=== PATIENT | male | born 1990 | race Caucasian/White ===

== ENCOUNTER 2020-10-08 01:22 | Observation (INO) | payer OTHER, SELFPAY ==
[2020-10-08] VITALS (11 sets, daily range): BP systolic 110–160; BP diastolic 73–107; PULSE 43–83; RESP 14–19; TEMP 36.3–37.1; O2SAT 97–99; BMI 36.3
--- NOTE | 2020-10-08 | ECHO_ITS ---
Patient Info Name: Bry Rosas Age: 30 years : 1990 Gender: Male Ht: 71 in Wt: 260 lbs BSA: 2.47 m2 HR: 59 bpm BP: 118 / 80 mmHg Technical Quality: Good Exam Date: 10/08/2020 1:16 PM Exam Location: [facility] Patient Status: Outpatient Admit Date: 10/08/2020 Staff Ordering Physician: Nancy Rice MD Cvor Nurse: Sergio Lopez RDCS, RT Attending Provider: Doris Ruff MD Referring Physician: Dwayne VILLAGOMEZ; Exam Type: CA echo doppler color flow Study Info Indications I47.2 - Ventricular tachycardia Complete two-dimensional, color flow and Doppler transthoracic echocardiogram is performed. Strain analysis performed. Summary 1. Complete two-dimensional, color flow and Doppler transthoracic echocardiogram is performed. 2. Left ventricular chamber dimension is normal. 3. Left ventricular systolic function is normal, estimated at 60-65%. 4. There is moderately increased left ventricular wall thickness. 5. The left ventricular diastolic function is grade I diastolic dysfunction. 6. E/e' 8 is minimally elevated. 7. Global longitudinal strain is normal at -17.3%. 8. There is trace mitral valve regurgitation. 9. There is trace pulmonic regurgitation. Left Ventricle Global longitudinal strain is normal at -17.3%. E/e' 8 is minimally elevated. Left ventricular chamber dimension is normal. Left ventricular systolic function is normal, estimated at 60-65%. There is moderately increased left ventricular wall thickness. The left ventricular diastolic function is grade I diastolic dysfunction. Right Ventricle Right ventricular systolic function is normal and with normal TAPSE 2.4 cm. Right ventricular chamber dimension is normal. Left Atria Left atrial chamber dimension is normal. Right Atria Right atrial chamber dimension is normal. Aortic Valve The aortic valve is trileaflet. There is no aortic valve stenosis. There is no aortic valve regurgitation. Pulmonic Valve There is trace pulmonic regurgitation. Mitral Valve There is no mitral valve stenosis. There is trace mitral valve regurgitation. Tricuspid Valve There is no tricuspid valve regurgitation. Pericardium/Pleural There is no pericardial effusion. Inferior Vena Cava Normal inferior vena cava with >50% collapse upon inspiration consistent with normal right atrial pressure, 5 mmHg. Aorta The aortic root size at the sinus of Valsalva is normal. Left Ventricular Outflow Tract Name Value Normal LVOT 2D LVOT Diameter 2.0 cm LVOT Doppler LVOT Peak Gradient 3 mmHg LVOT Mean Gradient 2 mmHg LVOT VTI 19 cm LVOT VTI/AV VTI Ratio 0.7 LVOT Stroke Volume 62 ml LVOT CO 3.7 l/min LVOT CI 1.6 l/min/m2 Mitral Valve Name Value Normal
--- NOTE | ~2020-10-08 | XR_ITS ---
XR chest 1V portable DATE: 10/08/2020 08:23 INDICATION: Tachycardia. Atrial fibrillation. TECHNIQUE: Portable upright AP chest on 10/08 at 0806 hours COMPARISON: 02/04/2015 AP and lateral chest FINDINGS: Normal heart size. No hilar or mediastinal enlargement. No pulmonary infiltrate or consolid ation or pleural effusion or pulmonary vascular congestion or pneumothorax. Included skeletal structu res are unremarkable. IMPRESSION: No active cardiopulmonary disease Reviewed, dictated and finalized at location A.
--- NOTE | 2020-10-08 01:27 | PC.NURSE ---
This patient, Bry Rosas, was admitted to IMU Room 210-01 at 0027 . Patient/family oriented to hospital policies and general routines including ID bracelet, bed and alarms, visiting hours, pain management, procedures, bathroom and other care routines, personal items, smoking policy, room service/diet, and visiting hours. Information on how to activate the Rapid Response Team has been discussed. Patient/Family are encouraged to report perceived risks to care and to ask questions if they do not understand what they are told or what they should do.
--- NOTE | 2020-10-08 03:57 | ECG_ITS ---
Measurements Intervals [place] Rate: 46 P: 20 ND: 176 QRS: 16 QRSD: 102 T: 19 QT: 446 QTc: 392 Interpretive Statements SINUS BRADYCARDIA BASELINE WANDER- I, III, AVR, AVL, AVF ABNORMAL ECG Electronically Signed On 10-08-2020 6:29:36 CDT by Donovan Sutherland D.O.
[2020-10-08 04:55] LABS: Basophils Percent Auto 0.6 % (0.2-1.2); Eosinophils Absolute Auto 0.2 K/mm3 (0-0.3); Eosinophils Percent Auto 2.3 % (0-4.4); Hematocrit 41.9 % (42.0-52.0); Hemoglobin 14.1 g/dL (14.0-18.0); Immature Granulocyte Absolute 0.04 K/mm3 (0.00-0.031); Immature Granulocyte Percent A 0.6 % (0-0.5); Lymphocytes Absolute Auto 3.53 K/mm3 (0.9-3.2); Lymphocytes Percent Auto 50.4 % (18.3-44.2); Mean Corpuscular HGB Conc 33.7 g/dl (32-36); Mean Corpuscular Hemoglobin 30.8 pg (26-34); Mean Corpuscular Volume 91.5 fl (80-100); Mean Platelet Volume 9.2 fl (7.4-10.4); Monocytes Absolute Auto 0.6 K/mm3 (0.1-0.6); Monocytes Percent Auto 8.7 % (2.6-8.5); Neutrophils Absolute Auto 2.6 K/mm3 (1.3-6.7); Neutrophils Percent Auto 37.4 % (45.5-73.1); Platelet Count Result 256 k/mm3 (150-375); Red Blood Count 4.58 M/mm3 (4.6-6.20); Red Cell Distribution Width 12.3 % (11.5-14.5)
[2020-10-08 05:03] LABS: Partial Thromboplastin Time 34.5 SECONDS (22.3-36.8)
[2020-10-08] MEDS: ENOXAPARIN 120 MG/0.8 ML SYRINGE SUB-Q (07:04)
[2020-10-08 07:19] LABS: Estimated CRCL calculation 154 ml/min; Estimated Glomerular Filt Rate > 60
[2020-10-08 08:56] LABS: Anion Gap 10 mmol/L (8-16); Blood Urea Nitrogen 9 mg/dL (9-20); Calcium 9.1 mg/dL (8.4-10.2); Carbon Dioxide 20 mmol/L (22-30); Chloride 107 mmol/L (98-107); Estimated CRCL calculation 154 ml/min; Estimated Glomerular Filt Rate > 60; Glucose 94 mg/dL (75-110); Sodium 137 mmol/L (137-145)
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
[2020-10-08 12:43] LABS: Basophils Percent Auto 0.7 % (0.2-1.2); Eosinophils Absolute Auto 0.1 K/mm3 (0-0.3); Eosinophils Percent Auto 2.3 % (0-4.4); Hematocrit 42.6 % (42.0-52.0); Hemoglobin 14.6 g/dL (14.0-18.0); Immature Granulocyte Absolute 0.03 K/mm3 (0.00-0.031); Immature Granulocyte Percent A 0.5 % (0-0.5); Lymphocytes Absolute Auto 2.41 K/mm3 (0.9-3.2); Lymphocytes Percent Auto 41.8 % (18.3-44.2); Mean Corpuscular HGB Conc 34.3 g/dl (32-36); Mean Corpuscular Hemoglobin 31.1 pg (26-34); Mean Corpuscular Volume 90.8 fl (80-100); Mean Platelet Volume 9.4 fl (7.4-10.4); Monocytes Absolute Auto 0.4 K/mm3 (0.1-0.6); Monocytes Percent Auto 7.3 % (2.6-8.5); Neutrophils Absolute Auto 2.7 K/mm3 (1.3-6.7); Neutrophils Percent Auto 47.4 % (45.5-73.1); Platelet Count Result 239 k/mm3 (150-375); Red Blood Count 4.69 M/mm3 (4.6-6.20); Red Cell Distribution Width 12.6 % (11.5-14.5); White Blood Count 5.8 K/mm3 (4.5-10.0)
[2020-10-08 12:55] LABS: Alanine Aminotransferase 100 U/L (4-50); Albumin Level 4.3 g/dL (3.5-5.1); Alkaline Phosphatase 80 U/L (38-126); Anion Gap 8 mmol/L (8-16); Aspartate Amino Transferase 65 U/L (17-59); Bilirubin,Total 0.7 mg/dL (0.2-1.3); Blood Urea Nitrogen 9 mg/dL (9-20); Calcium 9.2 mg/dL (8.4-10.2); Carbon Dioxide 24 mmol/L (22-30); Chloride 106 mmol/L (98-107); Estimated CRCL calculation 154 ml/min; Estimated Glomerular Filt Rate > 60; Glucose 138 mg/dL (75-110); Potassium 3.6 mmol/L (3.4-5.0); Sodium 138 mmol/L (137-145)
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
== END 2020-10-08 16:10 | disposition home or self-care (01) ==
PROVIDERS: Admitting Provider Internal Medicine; Visit Provider Internal Medicine
DX: R00.2 Palpitations (principal); R00.1 Bradycardia, unspecified; I48.91 Unspecified atrial fibrillation; I10 Essential (primary) hypertension; R06.02 Shortness of breath; R07.9 Chest pain, unspecified; E87.2 Acidosis; E66.9 Obesity, unspecified; Z68.36 Body mass index [BMI] 36.0-36.9, adult; F17.210 Nicotine dependence, cigarettes, uncomplicated
CPT/HCPCS: 36415; 71045; 80048; 80053; 82565; 85025; 85730; 93005; 93306; 96372; G0378; G0379; J1650

== ENCOUNTER 2021-07-21 20:38 | Emergency (ER) | payer OTHER, SELFPAY ==
--- NOTE | ~2021-07-21 | CT_ITS ---
EXAMINATION: CT abdomen pelvis wo con DATE: 07/21/2021 21:42 INDICATION: Left upper quadrant pain and swelling TECHNIQUE: Computed tomography (CT) of the abdomen and pelvis was performed without intravenous contr ast. The dose-length product (DLP) was 1628.23 mGy-cm. Automated exposure control and iterative recon struction technique were employed. COMPARISON: None FINDINGS: The lung bases are clear. The heart size is normal. The liver, spleen, pancreas, gallbladde r, and adrenal glands are normal. The kidneys are unremarkable. There is mild periportal lymphadenopa thy. There is no free intraperitoneal gas or evidence of bowel obstruction. A moderate volume of colo yelena stool is present. The appendix is normal. IMPRESSION: 1. Moderate volume of colonic stool. 2. Mild periportal lymphadenopathy, likely reactive. Reviewed, dictated and finalized at location F.
[2021-07-21 20:40] VITALS: BP 135/88; PULSE 85; RESP 20; TEMP 36.3; O2SAT 100
--- NOTE | 2021-07-21 20:57 | ED.ABDPAIN ---
HPI - Abdominal Pain General Chief Complaint: Abdominal Pain Stated Complaint: abd pain Time Seen by Provider: 07/21/21 20:55 Source: patient Mode of arrival: ambulatory Limitations: no limitations History of Present Illness HPI narrative: Patient is a 31-year-old male complaining of left lower and left mid quadrant pain, 3 out of 10, sharp, nonradiating, accompanied by constipation started 3 to 4 days ago. Patient denies any chest pain, shortness of breath, nausea, vomiting, urinary symptoms, fever or chills. Related Data Home Medications Medication Instructions Recorded Confirmed buprenorphine-naloxone [Suboxone] 1 film BUCCAL DAILY PRN 10/08/20 10/08/20 Allergies Allergy/AdvReac Type Severity Reaction Status Date / Time acetaminophen AdvReac Rash Verified 07/21/21 20:42 [From Tylenol-Codeine #3] codeine AdvReac Rash Verified 07/21/21 20:42 [From Tylenol-Codeine #3] Review of Systems Review of Systems: All systems reviewed & are unremarkable except as noted in HPI and below Constitutional: Constitutional: Denies body ache(s), Denies chills, Denies excessive sweating, Denies fatigue, Denies fever(s), Denies headache(s), Denies lethargy, Denies malaise, Denies weakness and Denies weight loss Eyes: Eyes: Denies blurry vision, Denies change in vision and Denies loss of vision ENT: Denies dizziness, Denies ear discharge, Denies headache(s), Denies lip swelling, Denies epistaxis, Denies nasal congestion, Denies neck pain, Denies throat swelling and Denies tongue swelling Cardiovascular: Cardiovascular: Denies chest pain, Denies chest pain at rest, Denies chest pain with activity, Denies diaphoresis, Denies rapid heart rate, Denies edema, Denies irregular heart rhythm, Denies lightheadedness, Denies palpitations, Denies dyspnea and Denies dyspnea on exertion Respiratory: Respiratory: Denies chest congestion, Denies cough, Denies hemoptysis, Denies dyspnea and Denies dyspnea on exertion Gastrointestinal: Gastrointestinal: Denies melena, Denies hematochezia, Denies diarrhea, Denies nausea, Denies vomiting and Denies hematemesis Musculoskeletal: Musculoskeletal: Denies abnormal gait, Denies deformity, Denies joint swelling, Denies limited range of motion, Denies neck pain and Denies numbness Neurologic: Denies Abnormal speech present, Denies abnormal gait, Denies confusion, Denies dizziness, Denies headache(s), Denies focal weakness, Denies loss of vision, Denies numbness, Denies Other visual disturbances, Denies Sensory deficit (Neuro) and Denies weakness Psychiatric: Psychiatric: Denies confusion, Denies depression, Denies auditory hallucinations, Denies homicidal ideation and Denies suicidal ideation Endocrine: Endocrine: Denies cold intolerance, Denies excessive sweating, Denies fatigue, Denies heat intolerance and Denies palpitations Hematologic/Lymphatic: Hematologic/Lymphatic: Denies easy bleeding and Denies easy bruising Allergic/Immunologic: Allergic/Immunologic: Denies lip swelling, Denies throat swelling and Denies tongue swelling PMFSH Past Medical History Medical History Abnormal heart rhythm Drug abuse, opioid type Has been clean since 2015 Family History Family History Father Acute myocardial infarction Mother Acute myocardial infarction Social History Social History Years smoked: 20 Smoking status: Current every day smoker Tobacco type: cigarettes Alcohol intake: former Substance use: former Substance use type: heroin Gender identity (if verbalized by the patient): Male Spiritual care concerns: No Exam Const: General: cooperative, healthy appearing, comfortable, no acute distress, well developed, alert and awake; No confusion Orientation/consciousness: oriented to person, oriented to place, oriented to time, patient oriented x3 and No confusion Limitati
[2021-07-21 21:13] LABS: Basophils Percent Auto 0.5 % (0.2-1.2); Eosinophils Absolute Auto 0.1 K/mm3 (0-0.3); Eosinophils Percent Auto 2.2 % (0-4.4); Hematocrit 44.9 % (42.0-52.0); Hemoglobin 15.1 g/dL (14.0-18.0); Immature Granulocyte Absolute 0.03 K/mm3 (0.00-0.031); Immature Granulocyte Percent A 0.5 % (0-0.5); Lymphocytes Absolute Auto 2.57 K/mm3 (0.9-3.2); Lymphocytes Percent Auto 39.8 % (18.3-44.2); Mean Corpuscular HGB Conc 33.6 g/dl (32-36); Mean Corpuscular Hemoglobin 31.3 pg (26-34); Mean Corpuscular Volume 93.2 fl (80-100); Mean Platelet Volume 8.9 fl (7.4-10.4); Monocytes Absolute Auto 0.6 K/mm3 (0.1-0.6); Monocytes Percent Auto 9.8 % (2.6-8.5); Neutrophils Absolute Auto 3.1 K/mm3 (1.3-6.7); Neutrophils Percent Auto 47.2 % (45.5-73.1); Platelet Count Result 242 k/mm3 (150-375); Red Blood Count 4.82 M/mm3 (4.6-6.20); Red Cell Distribution Width 12.4 % (11.5-14.5); White Blood Count 6.5 K/mm3 (4.5-10.0)
[2021-07-21 21:24] LABS: Alanine Aminotransferase 93 U/L (4-50); Albumin Level 4.4 g/dL (3.5-5.1); Alkaline Phosphatase 76 U/L (38-126); Anion Gap 3 mmol/L (8-16); Aspartate Amino Transferase 61 U/L (17-59); Bilirubin,Total 0.4 mg/dL (0.2-1.3); Blood Urea Nitrogen 12 mg/dL (9-20); Calcium 9.1 mg/dL (8.4-10.2); Carbon Dioxide 31 mmol/L (22-30); Chloride 104 mmol/L (98-107); Estimated CRCL calculation 110 ml/min; Estimated Glomerular Filt Rate > 60; Glucose 80 mg/dL (65-110); Lipase 93 U/L (23-300); Potassium 3.5 mmol/L (3.4-5.0); Sodium 138 mmol/L (137-145)
[2021-07-21] MEDS: SODIUM CHLORIDE 0.9% IV 1,000 ML 999 ML IV CONT (21:26)
[2021-07-21 21:27] VITALS: BP 114/78; PULSE 72; RESP 18; O2SAT 99
[2021-07-21 22:29] LABS: Add Urine Microscopic? YES; Appearance Urine Clear (Clear); Bilirubin Urine Negative (Negative); Blood Urine Negative (Negative); Color Urine Yellow (Yellow); Glucose Urine UA Negative (Negative); Ketones Urine Negative (Negative); Leukocyte Esterase Ur Negative LEU/UL (Negative); Mucus Urine Rare /lpf; Nitrate Urine Negative (Negative); Protein Urine Negative (Negative); RBC Urine 0-2 /hpf (0-2); Specific Grav Ur 1.024 (1.001-1.035); WBC Urine 0-3 /hpf
[2021-07-22] VITALS: BP 117/68; PULSE 74; RESP 18; O2SAT 98
== END 2021-07-22 00:01 | disposition home or self-care (01) ==
PROVIDERS: Emergency Provider Emergency Medicine
DX: K59.00 Constipation, unspecified (principal); F17.210 Nicotine dependence, cigarettes, uncomplicated
CPT/HCPCS: 36415; 74176; 80053; 81001; 83690; 85025; 96360; 99284; J7030

== ENCOUNTER 2022-10-24 14:47 | Outpatient (CLI) | payer OTHER, SELFPAY ==
[2022-10-24 16:38] LABS: Hepatitis B Surface Antigen Negative (Negative)
[2022-10-24 16:43] LABS: Hepatitis B Core IgM Result Negative (Negative)
[2022-10-24 16:55] LABS: Hepatitis B Surface Antibody > 1000.00 s/c
[2022-10-24 17:22] LABS: Hepatitis B Surface Antigen 0.12 S/C
[2022-10-24 17:23] LABS: Hepatitis B Core Antibody, IgM 0.03 S/C; Hepatitis B Surface Anti Res Positive
[2022-10-27 00:25] LABS: Hepatitis B Core Ab Total Nonreactive (Nonreactive)
[2022-10-31 00:48] LABS: ALT 91 U/L (9-46); Alpha-2-Macroglobulin 219 mg/dL (106-279); Apolipoprotein A1 137 mg/dL (94-176); Fibrosis Score 0.19; Fibrosis Stage F0; GGT 45 U/L (3-90); Haptoglobin 136 mg/dL (43-212); Necroinflammat Act Grade A1-A2; Total Bilirubin 0.4 mg/dL (0.2-1.2)
== END 2022-10-24 14:48 | disposition home or self-care (01) ==
PROVIDERS: Visit Provider Nurse Practitioner
DX: B19.20 Unspecified viral hepatitis C without hepatic coma (principal); E66.9 Obesity, unspecified; R74.01 Elevation of levels of liver transaminase levels
CPT/HCPCS: 36415; 81596; 86704; 86705; 86706; 87340

== ENCOUNTER 2022-11-03 08:15 | Outpatient (CLI) | payer OTHER, SELFPAY ==
--- NOTE | ~2022-11-03 | US_ITS ---
Limited Abdominal Sonogram: Real-time sonographic imaging of the right upper quadrant was performed. Clinical History: Hepatitis C Findings: The liver appears normal with no evidence of mass lesion or bile duct dilatation. Main por joana vein demonstrates normal direction of flow. The gallbladder is relatively contracted, but appears normal with no evidence of gallstone or wall thickening. The common bile duct measures 3 mm. The vi sualized pancreas, aorta, and IVC are unremarkable. Impression: No significant abnormality seen. Reviewed, dictated and finalized at location . Impression: No significant abnormality seen.
== END 2022-11-03 08:16 | disposition home or self-care (01) ==
PROVIDERS: PCP Internal Medicine; Visit Provider Nurse Practitioner
DX: B19.20 Unspecified viral hepatitis C without hepatic coma (principal); R74.01 Elevation of levels of liver transaminase levels; E66.9 Obesity, unspecified
CPT/HCPCS: 76705